=== PATIENT | male | born 1995 | race Hispanic/Latino ===

== ENCOUNTER 2017-12-14 15:13 | Emergency (ER) | payer SELFPAY ==
[2017-12-14] MEDS ORDERED: Ibuprofen 200 MG TAB ONE (16:40)
== END 2017-12-14 15:39 | disposition home or self-care (01) ==
LOC: ERS 15:13
DX: M25.512 Pain in left shoulder (principal); M25.511 Pain in right shoulder; J30.9 Allergic rhinitis, unspecified; E78.5 Hyperlipidemia, unspecified
CPT/HCPCS: 99283